=== PATIENT | male | born 1985 | race Hispanic/Latino ===

== ENCOUNTER 2022-03-24 18:59 | Emergency (ER) | payer OTHER ==
[2022-03-24] MEDS ORDERED: BACI/NEOMYCIN/POLY OINT 15GM TOP ONE (19:59)
[2022-03-24] MEDS ORDERED: KETOROLAC 30 MG/ML INJ ONE (19:59)
[2022-03-24] MEDS ORDERED: NA CHLORIDE 0.9% 1,000 ML ONE (20:00)
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
[2022-03-25 00:26] VITALS: TEMP 98.3
[2022-03-25 00:29] VITALS: BP 148/100; O2SAT 97
== END 2022-03-24 22:42 | disposition home or self-care (01) ==
LOC: ER 18:59
DX: T22.232A Burn of second degree of left upper arm, initial encounter (principal); T31.0 Burns involving less than 10% of body surface
CPT/HCPCS: J7030